=== PATIENT | male | born 1980 | race African-American/Black ===

== ENCOUNTER 2022-06-11 23:22 | Emergency (ER) | payer OTHER, MEDICAID ==
[~2022-06-11] VITALS: Ht 190.5 cm; Wt 141.0 kg
[2022-06-12 01:12] LABS: BASOPHILS % (AUTO) 0.8 % (0.0-2.0); EOSINOPHILS % (AUTO) 3.5 % (1.0-6.0); HEMATOCRIT 29.2 % (41-53); HEMOGLOBIN 9.8 g/dL (13.5-17.5); LYMPHOCYTES # (AUTO) 1.9 K/uL (1.0-4.8); LYMPHOCYTES % (AUTO) 23.4 % (22.0-44.0); MEAN CORPUSCULAR HEMOGLOBIN 32.9 pg (26.0-34.0); MEAN CORPUSCULAR HGB CONC 33.7 G/dL (31.0-37.0); MEAN CORPUSCULAR VOLUME 98 fL (80-100); MONOCYTES # (AUTO) 0.8 K/uL (0.1-1.0); MONOCYTES % (AUTO) 9.5 % (2.0-9.0); NEUTROPHILS # (AUTO) 5.1 K/uL (1.8-7.7); NEUTROPHILS % (AUTO) 62.8 % (40.0-70.0); PLATELET COUNT (AUTO) 384 K/uL (150-450); RED CELL DISTRIBUTION WIDTH 13.5 % (11.5-14.5)
[2022-06-12 01:20] LABS: ANION GAP 4 mmol/L (8-16); CALCIUM, TOTAL 8.9 mg/dL (8.8-10.5); CARBON DIOXIDE 33 mmol/L (22-29); CHLORIDE 101 mmol/L (98-107); CREATININE 1.09 mg/dL (0.60-1.30); GLUCOSE,RANDOM 103 mg/dL (70-110); SODIUM SERUM 138 mmol/L (136-145); UREA NITROGEN, BLOOD 17 mg/dL (7-18)
[2022-06-12 01:26] LABS: ALANINE AMINOTRANSFERASE 22 U/L (12-78); ALBUMIN 3.7 g/dL (3.4-5.0); ALKALINE PHOSPHATASE 83 U/L (46-116); ASPARTATE AMINOTRANSFERASE 19 U/L (15-37); BILIRUBIN,TOTAL 1.4 mg/dL (0.1-1.0); TOTAL PROTEIN, SERUM 7.8 g/dL (6.4-8.2)
[2022-06-12 01:32] LABS: GLOMERULAR FILTR. RATE CALC > 60 mL/min (>60)
[2022-06-12 01:56] LABS: PROTHROMBIN TIME 10.2 SEC (9.4-11.6)
[2022-06-12] MEDS ORDERED: SODIUM CHLORIDE 0.9% 100 ML ONE (02:27)
[2022-06-12] MEDS ORDERED: IOHEXOL 350 MG/ML 100 ML VIAL ONE (02:27)
[2022-06-12 05:45] VITALS: BP 159/99
== END 2022-06-12 06:32 | disposition home or self-care (01) ==
LOC: EMS 23:24
DX: L76.22 Postprocedural hemorrhage of skin and subcutaneous tissue following other procedure (principal); D64.9 Anemia, unspecified; I10 Essential (primary) hypertension; Z90.89 Acquired absence of other organs; Z91.010 Allergy to peanuts
CPT/HCPCS: 99285; 80053; 85025; 85610; 85730; 36415; 74177; Q9967; J7050